=== PATIENT | male | born 1975 | race Caucasian/White ===

== ENCOUNTER 2017-03-09 15:45 | Outpatient (CLI) | payer BC ==
[2017-03-09 16:55] LABS: #Basophils 0.1 thou/uL (0.0-0.2); #Eosinphils 0.3 thou/uL (0.0-0.7); #Lymphocytes 2.6 thou/uL (1.20-3.40); #Monocytes 0.6 thou/uL (0.11-0.59); #Neutrophils 3.2 thou/uL (1.40-6.50); %Eosinophils 4.6 % (0.0-10.0); %Lymphocytes 38.5 % (21.0-51.0); %Monocytes 8.4 % (0.0-10.0); Hematocrit 47.1 % (42.0-52.0); Red Blood Cell (RBC) Count 5.57 mill/uL (4.70-6.10); White Blood Cell (WBC) Count 6.7 thou/uL (4.8-10.8)
[2017-03-09 17:03] LABS: Hemoglobin A1c 4.8 % (4.0-6.0)
[2017-03-09 17:21] LABS: ALT (SGPT) 30 U/L (8-55); AST (SGOT) 24 U/L (5-34); Alkaline Phosphatase 48 U/L (40-150); Anion Gap 11 mmol/L (10-20); BUN (Urea Nitrogen) 28 mg/dL (8.9-20.6); Bilirubin, Direct 0.3 mg/dL (0.1-0.3); Bilirubin, Total 0.8 mg/dL (0.2-1.2); Calc. Creatinine Clearance 0 mL/min (70-130); Calcium 9.6 mg/dL (7.8-10.44); Carbon Dioxide 28 mmol/L (22-29); Chloride 104 mmol/L (98-107); Estimated GFR-MDRD 80; Globulin 2.9 g/dL (2.4-3.5); Protein, Total 7.3 g/dL (6.0-8.3)
--- NOTE | 2017-03-09 19:32 | RAD ---
EXAM: CHEST TWO VIEWS 03/09/17 HISTORY: Preoperative exam. COMPARISON: None. FINDINGS: Normal cardiac silhouette. The pulmonary vessels and hilum are normal. Costophrenic angles are clear. No mass or consolidation. No osseous abnormalities or pneumothorax. IMPRESSION: No acute cardiopulmonary process. POS: NICHOLEH
== END 2017-03-09 15:46 | disposition home or self-care (01) ==
LOC: LABBT 15:45
PROVIDERS: ATTEND Surgery
DX: Z01.818 Encounter for other preprocedural examination (principal); E66.01 Morbid (severe) obesity due to excess calories
CPT/HCPCS: 71020; 80053; 80076; 83036; 85025; 93005; 93010

== ENCOUNTER 2017-03-11 11:22 | Inpatient (IN) | payer BC ==
[2017-03-09 16:06] VITALS: BMI 39.2
[2017-03-11] MEDS ORDERED: Heparin 5,000 UNITS/ML VIAL ONE (13:17)
[2017-03-11] MEDS ORDERED: Midazolam HCl 2 mg/2 ml Vial ONE ×2 (13:17→14:57)
[2017-03-11] MEDS ORDERED: CEFAZOLIN/Water 2 GM/20 ML SYRINGE ONE (13:17)
[2017-03-11] MEDS ORDERED: HYDROmorphone 0.5 MG/0.5 ML SYRINGE ONE ×2 (14:57→14:58)
[2017-03-11] MEDS ORDERED: Fentanyl 100 MCG/2 ML VIAL ONE (14:57)
[2017-03-11] MEDS ORDERED: Bupivacaine/Epinephrine 0.25% 30 ML VIAL ONE ×2 (15:02→15:03)
[2017-03-11] MEDS ORDERED: Ketorolac Tromethamine 30 MG/ML VIAL ONE (17:12)
[2017-03-11] MEDS ORDERED: Dexamethasone 20 MG/5 ML VIAL ONE (17:12)
[2017-03-11] MEDS ORDERED: Propofol 200 MG/20 ML VIAL ONE (17:12)
[2017-03-11] MEDS ORDERED: Glycopyrrolate 0.2 MG/ML 5 ML SYRINGE ONE (17:12)
[2017-03-11] MEDS ORDERED: Ondansetron HCl/PF 4 MG/2 ML Vial ONE (17:12)
[2017-03-11] MEDS ORDERED: Lidocaine 1% PF 5 ML VIAL ONE (17:12)
[2017-03-11] MEDS ORDERED: Ondansetron HCl/PF 4 MG/2 ML Vial IVP PRN ×2 (17:20→18:43)
[2017-03-11] MEDS ORDERED: Promethazine HCl 25 MG/ML VIAL IM PRN ×2 (17:20→18:43)
[2017-03-11] MEDS ORDERED: HYDROmorphone 2 MG/ML VIAL SLOW IVP PRN (17:20)
[2017-03-11] MEDS ORDERED: Promethazine HCl 25 MG/ML VIAL SLOW IVP PRN (17:20)
[2017-03-11] MEDS ORDERED: Ketorolac Tromethamine 30 MG/ML VIAL IVP PRN (17:31)
[2017-03-11] MEDS ORDERED: diphenhydrAMINE 25 MG CAP PO PRN (17:31)
[2017-03-11] MEDS ORDERED: Naloxone HCl 0.4 mg/ml Vial IV PRN (17:31)
[2017-03-11] MEDS ORDERED: Morphine CADD 1 MG/ML CADD IVPB PRN (17:31)
[2017-03-11] MEDS ORDERED: diphenhydrAMINE 50 MG/ML VIAL IVP PRN ×3 (17:31→19:14)
[2017-03-11] MEDS ORDERED: Zolpidem Tartrate 5 MG TAB PO PRN (17:31)
[2017-03-11] MEDS ORDERED: diphenhydrAMINE 50 MG/ML VIAL IM PRN (17:31)
[2017-03-11] MEDS ORDERED: Communication Order-Pharmacy FS SCH (17:45)
[2017-03-11] MEDS ORDERED: Dextrose 50% Abboject 50 ML SYRINGE SLOW IVP PRN (18:43)
[2017-03-11] MEDS ORDERED: Hydrocodone-Acetamin 15 ML UDCUP PO PRN (18:43)
[2017-03-11] MEDS ORDERED: hydrALAZINE 20 MG/ML VIAL SLOW IVP PRN (18:43)
[2017-03-11] MEDS ORDERED: Dextrose 5% in Water 1,000 ML IV PRN (18:43)
[2017-03-11] MEDS ORDERED: Enoxaparin Sodium 40 MG/0.4 ML SYRINGE SC SCH (21:00)
[2017-03-11] MEDS: Acetaminophen 1,000 MG in Premix Bag 1 BAG IVPB SCH (21:01)
[2017-03-11] MEDS: D5 1/2 NS w/20 mEq KCL 1,000 ML IV SCH (23:45)
[2017-03-12] MEDS: Acetaminophen 1,000 MG in Premix Bag 1 BAG IVPB SCH ×2 (03:49→08:41)
[2017-03-12] MEDS: D5 1/2 NS w/20 mEq KCL 1,000 ML IV SCH (04:44)
[2017-03-12 05:37] LABS: #Lymphocytes 1.6 thou/uL (1.20-3.40); #Monocytes 0.5 thou/uL (0.11-0.59); #Neutrophils 6.6 thou/uL (1.40-6.50); %Basophils 0.3 % (0.0-1.0); %Lymphocytes 18.1 % (21.0-51.0); %Monocytes 5.3 % (0.0-10.0); Hematocrit 47.7 % (42.0-52.0); Mean Platelet Volume 8.1 fL (7.4-10.4); Red Blood Cell (RBC) Count 5.62 mill/uL (4.70-6.10); White Blood Cell (WBC) Count 8.7 thou/uL (4.8-10.8)
[2017-03-12 06:13] LABS: Anion Gap 14 mmol/L (10-20); BUN (Urea Nitrogen) 12 mg/dL (8.9-20.6); Calc. Creatinine Clearance 175 mL/min (70-130); Calcium 9.3 mg/dL (7.8-10.44); Carbon Dioxide 23 mmol/L (22-29); Chloride 103 mmol/L (98-107); Estimated GFR-MDRD 79
--- NOTE | 2017-03-12 06:27 | OP ---
DATE OF PROCEDURE: 03/11/2017 PREOPERATIVE DIAGNOSES: Morbid obesity with a BMI of 40 and sleep apnea. POSTOPERATIVE DIAGNOSES: Morbid obesity with a BMI of 40 and sleep apnea. PROCEDURES PERFORMED: 1. Laparoscopic sleeve gastrectomy with [place] staple line reinforcements and 38 [place] bougie 2. Esophagogastroduodenoscopy. SURGEON: Dr. Hidalgo. ANESTHESIA: General. ESTIMATED BLOOD LOSS: 50 mL. COMPLICATIONS: None. FINDINGS: Normal postoperative esophagogastroduodenoscopy. INDICATIONS: The patient is a 41-year-old male with a BMI of 40 who presents for weight loss surgery . He has been to our preoperative seminar. He has had dietary education. He understands the risks, benefits as well as alternative procedures to sleeve. He gives consent. TECHNIQUE: The patient was taken to the operating room and placed supine on the table. After genera l anesthetic was obtained, bilateral arms and legs were double strapped to bariatric table. The abdo men was shaved, prepped and draped in a sterile fashion. Left subcostal 5-mm Optiview trocar was divine swati in the usual fashion and high-flow pneumoperitoneum was obtained. Two lower abdominal 12-mm port s and a right subcostal 5-mm port were all placed under direct visualization. A 5 mm incision was ma de at the xiphoid and Adilia was used to raise the liver off the GE junction. Short gastrics were taken down from mid body of stomach to left zoey of the diaphragm. Left zoey posterior fundus of th e stomach and angle of His were all completely dissected. Short gastrics were taken down to a distan ce of 6 cm proximal to the pylorus. Multiple loads of an [place] stapling device were used to form t he sleeve. The bougie was brought in and antrum of the stomach. The first was a green load fi red up at a distance of proximal to the pylorus angled up towards the incisura. Multiple loads were then fired up along the bougie and stomach was completely transected at the angle of His. The stomach was removed from left abdominal incision. This fascial defect was closed using GraNee needle and #0 Vicryl tie. All port sites were infiltrated using local anesthetic. The upper abdomen was f illed with saline. EGD scope was passed into the esophagus, stomach to the level of the duodenum wit hout obstruction. There was no air leakage through the staple line. No evidence of bleeding interna l or on the outside of the stomach. No stricture at the incisura. No involvement of the GE junction with the staple line. The EGD scope was used to decompress the stomach and pulled and removed. The Adilia was removed under direct visualization without bleeding. All ports were infiltrated using local anesthetic and ports were removed under direct visualization without bleeding. Pneumoperitone um was let down. The Vicryl was used to close the fascial defect from the left abdominal incisions. All incisions were irrigated and closed using 4-0 Monocryl and Dermabond. The patient was en route to recovery in stable condition. All instrument counts, needle counts and lap counts were correct.
[2017-03-12 07:44] VITALS: BP 151/89; TEMP 98.3
--- NOTE | 2017-03-12 08:11 | RAD ---
SINGLE CONTRAST UPPER GI: HISTORY: A 41-year-old male with post-bariatric surgical evaluation. FINDINGS: The patient was given 15 mL in the upright position. Contrast media passed through the esophagus and postoperative stomach. No evidence for obstruction or extravasation. IMPRESSION: Unremarkable post-bariatric surgical 15 mL swallow. POS: PAULA
[2017-03-12] MEDS ORDERED: Hydrocodone-Acetamin 15 ML UDCUP PO PRN (08:34)
[2017-03-12] MEDS ORDERED: Pantoprazole 40 MG VIAL IVP SCH (09:00)
[2017-03-12] MEDS ORDERED: Iopamidol 300 61% 30 ML VIAL ONE (11:42)
== END 2017-03-12 10:57 | disposition home or self-care (01) | DRG 621 ==
LOC: SURG A 12:19 → EDSTATUS 13:34 → SURG A 18:19
PROVIDERS: ADMIT Surgery; ATTEND Surgery
PROC: 0DB64Z3 Excision of Stomach, Percutaneous Endoscopic Approach, Vertical (ICD-10-PCS; principal; 2017-03-11)
PROC: 0DJ08ZZ Inspection of Upper Intestinal Tract, Via Natural or Artificial Opening Endoscopic (ICD-10-PCS; 2017-03-11)
DX: E66.01 Morbid (severe) obesity due to excess calories (principal); G47.33 Obstructive sleep apnea (adult) (pediatric); Z68.41 Body mass index [BMI] 40.0-44.9, adult
CPT/HCPCS: 36415; 74241; 80048; 85025; 88307; 88312; 94760; C9113; J0131; J1100; J1170; J1644; J1650; J1885; J2001; J2250; J2274; J2405; J2704; J3010